=== PATIENT | male | born 1940 | race Caucasian/White ===

== ENCOUNTER 2020-01-14 08:52 | Outpatient (CLI) | payer MEDICARE, SELFPAY ==
[2020-01-14 20:58] LABS: SARS-CoV-2 RNA PCR Negative
== END 2020-01-14 08:53 | disposition home or self-care (01) ==
PROVIDERS: Visit Provider Otolaryngology
DX: Z01.818 Encounter for other preprocedural examination (principal); Z11.59 Encounter for screening for other viral diseases
CPT/HCPCS: 87635; C9803; U0003

== ENCOUNTER 2020-01-14 09:04 | Outpatient (CLI) | payer MEDICARE, SELFPAY ==
--- NOTE | 2020-01-14 09:43 | ECG_ITS ---
Measurements Intervals [place] Rate: 61 P: 43 MN: 169 QRS: -7 QRSD: 80 T: 47 QT: 392 QTc: 398 Interpretive Statements SINUS RHYTHM VOLTAGE CRITERIA FOR LVH BORDERLINE ECG Electronically Signed On 01-14-2020 10:19:19 CDT by Ant Silva D.O.
[2020-01-14 09:49] LABS: Blood Urea Nitrogen 20 mg/dL (9-20); Calcium 9.6 mg/dL (8.4-10.2); Carbon Dioxide 33 mmol/L (22-30); Chloride 102 mmol/L (98-107); Estimated Glomerular Filt Rate 53; Glucose 125 mg/dL (75-110); Potassium 4.8 mmol/L (3.4-5.0); Sodium 139 mmol/L (137-145)
== END 2020-01-14 09:05 | disposition home or self-care (01) ==
PROVIDERS: Visit Provider Anesthesiology
DX: Z01.818 Encounter for other preprocedural examination (principal); I10 Essential (primary) hypertension; Z79.899 Other long term (current) drug therapy
CPT/HCPCS: 36415; 80048; 93005

== ENCOUNTER 2020-01-17 01:33 | Day surgery (SDC) | payer MEDICARE, SELFPAY ==
[2020-01-12 09:47] VITALS: BMI 30.5
[2020-01-17] MEDS: LACTATED RINGERS 1,000 ML 30 ML IV CONT (09:00)
--- NOTE | 2020-01-17 09:03 | WPDANESEPPF ---
Anes - Initial Pre Proc Eval Procedure: Operation Date: 01/17/20 10:00 Proposed Procedures p Extraction of Skin Lesion Right Side of Neck - Tobias Stewart MD Date/Time: 01/17/20 09:03 Surgeon: Tobias Stewart MD Pre Op Diagnosis: NEOPLASM OF SKIN OF FACE Patient Data Age: 79 Gender: M Height: 6 ft Weight: 102.27 kg Allergies Allergy/AdvReac Type Severity Reaction Status Date / Time No Known Allergies Allergy Verified 01/12/20 09:52 Home Medications Medication Instructions Recorded Confirmed Type kogdexcghy-lghgbcsis-owwmvambh 1 tablet PO DAILY 01/12/20 01/12/20 History meloxicam 15 mg PO DAILY 01/12/20 01/12/20 History simvastatin 20 mg PO HS 01/12/20 01/12/20 History Patient hx anesthesia problems: none Family hx anesthesia problems: none [facility] Past Medical History Medical History Arthritis Hyperlipidemia Hypertension Anes - Eval Final PreProcedure Day of Procedure 01/17/20 09:03 Patient weight: obese Heart: regular rate and rhythm Lungs: clear to auscultation Airway: Mallampati scale class II Neurological: alert and oriented Last oral intake: >/= 8 hours ASA classification: III Emergent: no Anesthetic plan: proceed Anesthesia type and monitoring: general LMA and standard monitoring Informed Consent: The patient's anesthetic plan and its attendant risks and benefits were discussed with the patient/family/POA. Questions were solicited and answers provided to the satisfaction of the patient/family/POA.
[2020-01-17 09:23] VITALS: BP 128/67; PULSE 74; RESP 18; TEMP 35.7; O2SAT 99
--- NOTE | 2020-01-17 09:45 | PM.IMHP ---
H&P: HPI History of Present Illness Chief complaint: NEOPLASM OF SKIN OF FACE Narrative: Andrea Crawford is a 79 year old male with a suspicious skin lesion concerning for skin cancer, office biopsy non-diagnostic. Right side, below auricle. Review of Systems Review of Systems: All systems reviewed & are unremarkable except as noted in HPI and below PMFSH Past Medical History Medical History Arthritis Hyperlipidemia Hypertension Meds Home Medications and Allergies Home Medications Medication Instructions Recorded Confirmed Type kkvqbfqpvf-qguxuyzau-uzpfnpzit 1 tablet PO DAILY 01/12/20 01/17/20 History meloxicam 15 mg PO DAILY 01/12/20 01/17/20 History simvastatin 20 mg PO HS 01/12/20 01/17/20 History Allergies Allergy/AdvReac Type Severity Reaction Status Date / Time No Known Allergies Allergy Verified 01/17/20 09:21 Vital Signs Vital Signs - 24 hr 01/17/20 09:23 Temperature 35.7 C L Pulse Rate 74 Respiratory Rate 18 Blood Pressure 128/67 Pulse Oximetry 99 Exam Narrative: Exam Narrative: right neck skin lesion Assessment and Plan Assessment and plan (1) Neoplasm of skin: Code(s): D49.2 - Neoplasm of unspecified behavior of bone, soft tissue, and skin Status: Acute Assessment and Plan: Andrea has right neck skin lesion concerning for squamous cell carcinoma. Plan for wide local excision in OR. Refer to office H&P for full details.
[2020-01-17] MEDS: ceFAZolin 2 GM/D5W 50 ML 2 GM/50 ML BAG IVPB (10:00)
[2020-01-17] MEDS: LIDO 1%/EPINEPHRINE 1:100,000 20 ML VIAL 5 ML INFILTRATE (10:16)
--- NOTE | 2020-01-17 10:32 | SUR.OPER ---
specimen stitch is superior
[2020-01-17] MEDS: MUPIROCIN 2% OINT 22 GM TUBE 1 APPLIC TOPICAL (10:34)
--- NOTE | 2020-01-17 10:38 | P.OP_ITS ---
Procedure Note - Detailed Date of procedure: 01/17/20 Pre-op diagnosis: NEOPLASM OF SKIN OF FACE Post-op diagnosis: same Procedure performed: Wide local excision of suspected malignant neoplasm of skin with local flap reconstruction. Description of procedure: After consent was obtained, patient was brought to the OR and placed under general anesthesia via LMA. A timeout was performed. The neck was prepped and draped in sterile fashion. The skin lesion was marked and a 5mm margin was marked around the lesion for wide local excision. The area as infiltrated with 1% lidocaine with 1:100k epinephrine. The incision was made with 15 blade and electrocautery at 15 was used to dissect the skin lesion free. No visible deep invasion. The defect was approximately 1.5cm large [place] of missing skin. An O to Z plasty was performed, mobilizing a skin flap anteriorly to be brought back to reapproximate the incision. Skin was widely undermined and reapproximated using 3-0 vicryl and 5-0 proline suture in layered, interrupted fashion. With satisfactory closure, care of patient returned to anesthesia who woke him, removed the LMA and transferred him to PACU for recovery. Anesthesia: GLMA Surgeon: Tobias Stewart MD Estimated blood loss (mL): 5 Drains: No Packing: No Pathology: yes (Skin lesion, marking suture at 12 o'clock (superior)) Complications: None Condition: stable Disposition: same day Findings: Right skin lesion suspicious for SCCa, wide local excision with O to Z plasty.
[2020-01-17 10:40] VITALS: BP 115/92; PULSE 102; RESP 15; TEMP 36.4; O2SAT 99
[2020-01-17 10:45] VITALS: BP 133/79; PULSE 96; RESP 16; O2SAT 98
[2020-01-17 11:00] VITALS: BP 131/78; PULSE 81; RESP 17; O2SAT 98
[2020-01-17 11:05] VITALS: BP 140/66; PULSE 78; RESP 18; O2SAT 97
[2020-01-17 11:35] VITALS: BP 137/67; PULSE 68; RESP 16
== END 2020-01-17 12:00 | disposition home or self-care (01) ==
PROVIDERS: PCP Emergency Medicine; Visit Provider Otolaryngology
PROC: (CPT 14040; principal; 2020-01-17 10:00)
DX: C44.41 Basal cell carcinoma of skin of scalp and neck (principal); I10 Essential (primary) hypertension; E78.5 Hyperlipidemia, unspecified; M19.90 Unspecified osteoarthritis, unspecified site; E66.9 Obesity, unspecified; Z68.29 Body mass index [BMI] 29.0-29.9, adult
CPT/HCPCS: 14040; 36415; 80048; 87635; 88305; 93005; A9270; C9803; J0690; J1100; J2405; J2704; J3010; J7120; U0003

== ENCOUNTER 2023-04-24 08:19 | Outpatient (CLI) | payer MEDICARE, SELFPAY ==
--- NOTE | 2023-04-24 08:45 | ECG_ITS ---
Measurements Intervals [place] Rate: 62 P: 51 [place]: 170 QRS: -5 QRSD: 86 T: 56 QT: 398 QTc: 407 Interpretive Statements SINUS RHYTHM WITH OCCASIONAL SUPRAVENTRICULAR PREMATURE COMPLEXES COMPARED TO ECG 01/14/2020 09:46:06 NO SIGNIFICANT CHANGES Electronically Signed On 04-24-2023 12:45:34 CDT by Rosa Baldwin M.D.
[2023-04-24 09:03] LABS: Basophils Absolute Auto 0.1 K/mm3 (0.0-0.1); Basophils Percent Auto 0.8 % (0.2-1.2); Eosinophils Absolute Auto 0.1 K/mm3 (0-0.3); Eosinophils Percent Auto 1.9 % (0-4.4); Hematocrit 44.4 % (42.0-52.0); Hemoglobin 14.3 g/dL (14.0-18.0); Immature Granulocyte Absolute 0.04 K/mm3 (0.00-0.031); Immature Granulocyte Percent A 0.5 % (0-0.5); Lymphocytes Percent Auto 14.8 % (18.3-44.2); Mean Corpuscular HGB Conc 32.2 g/dl (32-36); Mean Corpuscular Hemoglobin 30.2 pg (26-34); Mean Corpuscular Volume 93.9 fl (80-100); Mean Platelet Volume 8.8 fl (7.4-10.4); Monocytes Absolute Auto 0.6 K/mm3 (0.1-0.6); Monocytes Percent Auto 7.9 % (2.6-8.5); Neutrophils Absolute Auto 5.5 K/mm3 (1.3-6.7); Neutrophils Percent Auto 74.1 % (45.5-73.1); Platelet Count Result 324 k/mm3 (150-375); Red Blood Count 4.73 M/mm3 (4.6-6.20); Red Cell Distribution Width 12.8 % (11.5-14.5); White Blood Count 7.4 K/mm3 (4.5-10.0)
[2023-04-24 09:15] LABS: Anion Gap 6 mmol/L (8-16); Blood Urea Nitrogen 14 mg/dL (9-20); Calcium 9.5 mg/dL (8.4-10.2); Carbon Dioxide 31 mmol/L (22-30); Chloride 102 mmol/L (98-107); Estimated Glomerular Filt Rate 58; Glucose 109 mg/dL (65-110); Potassium 4.9 mmol/L (3.4-5.0); Sodium 139 mmol/L (137-145)
== END 2023-04-24 08:20 | disposition home or self-care (01) ==
LOC: ANHSURGERY 08:24
PROVIDERS: PCP Emergency Medicine; Visit Provider Surgery
DX: K40.90 Unilateral inguinal hernia, without obstruction or gangrene, not specified as recurrent (principal); R93.1 Abnormal findings on diagnostic imaging of heart and coronary circulation
CPT/HCPCS: 36415; 80048; 85025; 86850; 86900; 86901; 93005

== ENCOUNTER 2023-05-01 10:31 | Observation (INO) | payer MEDICARE, SELFPAY ==
[2023-04-22 16:40] VITALS: BMI 25.8
--- NOTE | 2023-04-22 16:42 | PC.NURSE ---
Report to the Outpatient Waiting Room, entrance under the green pavilion located off [facility], at time _0800_ on date _[id number]_. Planned Procedure Time: _1000_. Time changes happen often and if your time is changed the preop area will call you the afternoon before. - You and your visitor will be asked to self-screen and do not enter if you have any COVID symptoms. - A mask is optional within the hospital at this time. Patients may have clear liquids (water, carbonated beverages, clear teas, apple juice) until 3 hours prior to surgery with a maximum of 20 ounces. - No food from midnight until time of surgery Take the following medications with a SIP of water the morning of surgery: ___Amlodipine DO NOT STOP ANY OF YOUR OTHER PRESCRIPTION MEDICATIONS PRIOR TO SURGERY ?EXCEPT THE FOLLOWING Medications to discontinue per physician None Date to take last dose Please no make-up, nail bruneian, hairspray, perfume, deodorant, or body powder the day of surgery. No jewelry (including any body piercings) or valuables the day of surgery, leave them at home. Please take a shower or bath the night before, or the morning of, surgery with an antibacterial soap. Wear comfortable, loose fitting clothing. - Jewelry must be removed prior to entering the operating room. Rings and piercings that are not removed may be cut off. - The hospital will not accept responsibility for valuables. - Please leave all valuables, including medications, at home the day of surgery. If you are going home after surgery, a licensed lease purchase driver must drive you home. - NO public transportation without another adult if you receive anesthesia. - We recommend that an adult stay with you for 24 hours following discharge. - We also recommend that you do not drive, make important decision, drink alcoholic beverages, or take any drugs that were not prescribed by your health care provider for at least 24 hours after your discharge time. Follow any additional instructions given to you from your surgeon. If you or anyone in your household have experienced Covid symptoms in the past week, please notify your surgeon or the nurse liaison at the phone number below for possible testing. Telephone instructions given to _Patient and Spouse__and asked if any additional questions and then verbalized understanding. Patient advised to call surgeon office or pre surgery nurse liaison [phone] if any additional questions.
[2023-04-30] VITALS (13 sets, daily range): BP systolic 113–158; BP diastolic 59–91; PULSE 45–81; RESP 11–18; TEMP 35.5–37.2; O2SAT 97–100
--- NOTE | 2023-04-30 08:59 | P.PNAN_ITS ---
Anes - Initial Pre Proc Eval Procedure: Operation Date: 04/30/23 10:00 Proposed Procedures p Robotic Laparoscopic Bilateral Inguinal Hernia Repair with Mesh - Jeremiah Sheth MD Date/Time: 04/30/23 08:59 Surgeon: Jeremiah Sheth MD Pre Op Diagnosis: Bilateral Ing Hernias Patient Data Age: 82 Gender: M Height: 1.83 m Weight: 86.4 kg Allergies Allergy/AdvReac Type Severity Reaction Status Date / Time No Known Allergies Allergy Verified 04/22/23 16:33 Home Medications Medication Instructions Recorded Confirmed Type simvastatin 20 mg tablet 20 mg PO HS 01/12/20 04/22/23 History amlodipine 5 mg tablet 5 mg PO DAILY 03/31/23 04/22/23 History pantoprazole 20 mg tablet,delayed 20 mg PO QAM 04/03/23 04/22/23 History release Patient hx anesthesia problems: none Family hx anesthesia problems: none Results Review: All pre-operative results and documents have been reviewed as part of the pre- operative evaluation. [facility] Past Medical History Medical History Arthritis Hyperlipidemia Hypertension Surgical History Surgical History History of right knee joint replacement January 2023 Family History Family History Father Heart disease Mother COPD (chronic obstructive pulmonary disease) Social History Social History Smoking status: Current some day smoker Tobacco type: cigars Alcohol intake: current Drinks per week: 2 Living arrangements: with family Occupation/Education: retired Spiritual care concerns: No Anes - Eval Final PreProcedure Day of Procedure 04/30/23 08:59 Patient weight: normal Heart: regular rate and rhythm Lungs: clear to auscultation Airway: Mallampati scale class II and special considerations poor dentition Neurological: alert and oriented Last oral intake: >/= 8 hours ASA classification: II Emergent: no Anesthetic plan: proceed Anesthesia type and monitoring: general ETT and standard monitoring Results Review: All pre-operative results and documents have been reviewed as part of the pre- operative evaluation. Informed Consent: The patient's anesthetic plan and its attendant risks and benefits were discussed with the patient/family/POA. Questions were solicited and answers provided to the satisfaction of the patient/family/POA.
[2023-04-30] MEDS: LACTATED RINGERS 1,000 ML 30 ML IV CONT ×3 (09:00→13:48)
--- NOTE | 2023-04-30 09:08 | WPDHPUPDATE1 ---
History and Physical Update Update Date/Time: 04/30/23 09:08 History and Physical has been reviewed, including an updated exam of the patient. There are NO changes in the patient's condition. Risks, benefits, and alternatives have been discussed and questions answered. Patient agrees to proceed with procedure.
[2023-04-30] MEDS: KETOROLAC 15 MG/ML VIAL (*BKC) IV PUSH (09:40)
[2023-04-30] MEDS: ACETAMINOPHEN 500 MG TABLET 1000 MG PO (09:40)
[2023-04-30] MEDS: ceFAZolin 2 GM/D5W 50 ML 2 GM/50 ML BAG IVPB (09:49)
[2023-04-30] MEDS: BUPIVACAINE/EPINEPHRINE 0.5% 50 ML VIAL INFILTRATE (13:10)
--- NOTE | 2023-04-30 13:37 | W.PM.PROC2 ---
Procedure Note - Detailed Date of Procedure 04/30/23 Pre-op Diagnosis Bilateral Ing Hernias Post-op Diagnosis Same Procedure Performed Robotic laparoscopic repair bilateral inguinal hernias Surgeon Jeremiah Sheth MD [employer] LOZANO Anesthesia General and Local (0.5% Marcaine with epinephrine) Indications Patient developed a sizable right inguinal hernia which has been bothersome for him. On exam he was noted to not only have a right inguinal hernia but also a left inguinal hernia. After discussion, he is taken to surgery now for robotic laparoscopic repair of both inguinal hernias. Findings Patient had bilateral indirect hernias, right larger than left Description of Procedure Patient was taken to surgery and induced into general anesthesia. The abdomen is prepped and draped. Trocars were placed across the abdomen a few cm above the umbilicus. The initial trocar was placed after local anesthetic and the varies needle had been introduced. CO2 insufflation was carried out with the varies needle. Then applied Medical 5 mm optical trocar was placed. This showed intraperitoneal location. We then placed the other 2 trocars using local and direct visualization. These were both robotic 8 mm trocars. The camera was then moved to another port and the 5 mm trocar was exchanged for an 8 mm robotic trocar. Patient was placed in Trendelenburg. We brought the robot into the field. The camera was placed and targeted. The 2 instrument ports were placed on the right and left side of the camera. The surgeon broke from the sterile field and went to the robotic console. I started on the patient's right side which was the larger and more symptomatic hernia. A peritoneal flap was created just above the area of the hernia defect. This was started laterally and continued medially to the median umbilical ligament. The flap was carefully dissected staying close to the peritoneum laterally but dissecting a little more deeply on the left to expose the rectus abdominus muscle. Cautery was used for hemostasis. The dissection was very dry. Dissection was carried down below the pectinate line laterally. We dissected down along the rectus muscle and exposed Arturo's ligament and the pubis. Dissection was carried more medially and the left rectus muscle was exposed. The bladder was carefully dissected off the pubis. I dissected about 2 cm posterior to the pubis and Arturo's ligament. We then turned our attention to the indirect hernia sac and the cord vessels and structures. Placing gentle traction on the hernia sac, I divided some of the transversalis sling and slowly but carefully reduce the hernia sac moving the traction farther forward as this was done. Additionally the hernia sac was retracted antral medially and the cord vessels were carefully dissected off the sac and preserved. Eventually we came to the edge of the hernia sac. This was dissected off the cord structures. I then continued the dissection of the peritoneum off the cord structures so that we were well below the internal ring with our peritoneal dissection. I continued the dissection on the lateral aspect making an adequate space to place our mesh. Medially we had adequate space with dissection at least 2 cm below the pubis and Arturo's ligament. At this point, I then turned my attention to the patient's left side. In similar fashion a peritoneal flap was started laterally and continued medially up to the median umbilical ligament. The flap was taken down staying very close to the peritoneum laterally but dissecting a little more deeply medially so that the left rectus muscle was found and exposed. We soon connected the dissection planes with the previous right-sided dissection. Dissection was continued on posteriorly and Arturo's ligament was exposed and continuity with the pubis was exposed. Laterally I dissected the flap below the pectinate line. I then turned my attention to the indir
[2023-04-30] MEDS: LACTATED RINGERS 1,000 ML 100 ML IV CONT ×2 (15:12→21:58)
--- NOTE | 2023-04-30 15:17 | ADMGEN ---
This patient, Andrea Crawford, was admitted to [facility] Surg Room 328-01. Patient/family oriented to hospital policies and general routines including ID bracelet, bed and alarms, visiting hours, pain management, procedures, bathroom and other care routines, personal items, smoking policy, room service/diet, and visiting hours. Information on how to activate the Rapid Response Team has been discussed. Patient/Family are encouraged to report perceived risks to care and to ask questions if they do not understand what they are told or what they should do.
[2023-04-30 16:20] LABS: Glucose Point of Care 119 mg/dl (65-105)
--- NOTE | 2023-04-30 16:22 | ECG_ITS ---
Measurements Intervals [place] Rate: 64 P: 65 [place]: 165 QRS: 0 QRSD: 88 T: 85 QT: 434 QTc: 451 Interpretive Statements SINUS RHYTHM POSSIBLE INFERIOR MYOCARDIAL INFARCTION , PROBABLY OLD [30 ms Q WAVE IN II/aVF] NONSPECIFIC T-WAVE ABNORMALITY ABNORMAL ECG COMPARED TO ECG 04/24/2023 08:54:13 NO SIGNIFICANT CHANGES Electronically Signed On 05-01-2023 8:57:50 CDT by Samuel Alston M.D.
--- NOTE | 2023-04-30 16:47 | PM.IMCN ---
Assessment and Plan Assessment and plan (1) Inguinal hernia without obstruction or gangrene: Qualifiers: Laterality: bilateral Recurrence: non-recurrent Qualified Code(s): K40.20 - Bilateral inguinal hernia, without obstruction or gangrene, not specified as recurrent Code(s): K40.90 - Unilateral inguinal hernia, without obstruction or gangrene, not specified as recurrent Status: Acute (2) Bradycardia following surgery: Code(s): I97.89 - Other postprocedural complications and disorders of the circulatory system, not elsewhere classified Status: Acute Plan Problem List 1. Inguinal hernia without obstruction or gangrene see GenSurg notes for care 2. Bradycardia following surgery Rapid response called around 1610 for diaphoresis and unresponsiveness DD: MD, vagal response, anemia, orthostatic hypoTN, electrolyte disturbances, hypoglycemia, bradycardia CBC, CMP, Mag, EKG ordered no ischemic pattern on EKG, formal read pending bird keeper 1.2 -> 1.4; BUN 58 -> 40; ECC 40. fluid resuscitating. elevated WBC - likely reactive to surgery, will trend hgb 14.3 -> 13.1 - patient post-operative, will trend. no outward signs of bleeding/blood in stool. trop negative LR increased from 100 ml/hr to 200 mL/hour during initial eval. completed first liter, second liter at 100 ml/hr ordered due to uptrending bird keeper. monitor I&Os. Blood sugar 119 Call to surgeon james Sheth MD. Surgeon updated and to bedside to assess patient. hold HTN medication - amlodipine, reassess in AM for re-initiation zofran PRN reassessed post-dinner bedrest complete orthostatic VS - if unable to tolerate/becomes diaphoretic, notify provider. CBC and BMP in AM. tele monitoring Reassessment at 2130: Patient remains A/Ox4, continued complaint of mild abdominal discomfort that is nonfocal. Able to eat 40% of his dinner without nausea/vomiting. No chest pain, shortness of breath, palpitations, or diaphoresis. S1-S2 present without murmur, rub, ectopy. No respiratory distress, lungs remain clear and equal throughout all lung medina. No erythema, drainage, swelling to surgical sites. No other complaints voiced. Assessed patient toleration of up to use urinal with 2 person standby assist. Mild swaying noted post-void, no diaphoresis, no syncopal prodrome. activity level changed to up to commode with assistance - reassess stability in AM for activity modification. Chronic Conditions - HTN: hold meds. Diet: Regular DVT Prophylaxis: SCDs and Lovenox Lines: pIV Code Status: Full Code Critical Care Time: I personally spent 60 minutes of direct patient care including (but not limited to) the physical examination, decision-making, bedside evaluation, review of medical records, review of labs and imaging, discussion with nursing staff and other providers for collaborative, critical care management of this patient. HPI Data of Consult Consult date: 04/30/23 Requesting Physician: Jeremiah Sheth MD Primary Care Provider: Brady Guerin, Consult Narrative Reason for consult: Bradycardia Narrative: Andrea Crawford is a 82 year old male who is postop today for hernia repair, done laparoscopically with PMH of HTN. Rapid response called shortly after 1600. Prior to RR being called, patient was up to the restroom to urinate, no bowel movement. Ambulated to and from restroom with assistance. Patient sat back into the bed when he reported nausea to his and the PCT. PCT left room to get emesis basin when he became diaphoretic and unresponsive. alerted patient career coach who came back to the bedside and called nursing staff. Rapid response was called. At my arrival patient was profusely diaphoretic, A/Ox0, with eye opening. Blood sugar was 119. Heart rate reading 45. Per staff, lowest heart rate seen was 38. Initial blood pressure during rapid response was 113/85, repeat was 107/53. Shortly after my arr
--- NOTE | 2023-04-30 17:06 | PC.NURSE ---
Addendum entered by Pat Hoyos RN 04/30/23 18:02: Rapid was called at 1610 Original Note: After urinating in the restroom and returning to the chair patient became unresponsive. This nurse was called by the [facility] child care associate into the room. After verbal stimuli and failure to respond to sternal rubbing a rapid response was called around 1615. Patient was returned to bed during the response. EKG was done, BS was taken, labs were ordered. After several minutes patient returned to his baseline condition of AOx1 responding to verbal stimuli. Arabella Valdes, and Dr. Sheth all responded to the room orders obtained. Patient currently on bedrest eating dinner will to continue to monitor. No signs of distress at this time.
--- NOTE | 2023-04-30 18:26 | PC.NURSE ---
muck operator notified of stat labs at 1745. She states that they are coming to draw him. At 1820 still not drawn. labs reordered, waiting for muck operator.
[2023-04-30 18:54] LABS: Hematocrit 40.5 % (42.0-52.0); Hemoglobin 13.1 g/dL (14.0-18.0); Mean Corpuscular HGB Conc 32.3 g/dl (32-36); Mean Corpuscular Hemoglobin 30.8 pg (26-34); Mean Corpuscular Volume 95.3 fl (80-100); Mean Platelet Volume 9.9 fl (7.4-10.4); Platelet Count Result 315 k/mm3 (150-375); Red Blood Count 4.25 M/mm3 (4.6-6.20); Red Cell Distribution Width 12.8 % (11.5-14.5); White Blood Count 20.8 K/mm3 (4.5-10.0)
[2023-04-30 19:17] LABS: Alanine Aminotransferase 14 U/L (6-50); Albumin Level 3.7 g/dL (3.5-5.1); Alkaline Phosphatase 68 U/L (38-126); Anion Gap 9 mmol/L (8-16); Aspartate Amino Transferase 23 U/L (17-59); Bilirubin,Total 0.9 mg/dL (0.2-1.3); Blood Urea Nitrogen 16 mg/dL (9-20); Calcium 8.9 mg/dL (8.4-10.2); Carbon Dioxide 26 mmol/L (22-30); Chloride 101 mmol/L (98-107); Estimated CRCL calculation 40 ml/min; Estimated Glomerular Filt Rate 49; Glucose 132 mg/dL (65-110); Magnesium 2.2 mg/dL (1.6-2.3); Sodium 136 mmol/L (137-145)
[2023-04-30 19:27] LABS: Troponin I < 0.012 ng/mL (0.000-0.034)
[2023-04-30] MEDS: HYDROcodone/acetaminophen (*CRX) 5-325 MG TABLET 1 TAB PO (20:40)
[2023-04-30] MEDS: SIMVASTATIN 20 MG TABLET PO (20:40)
[2023-05-01] VITALS (15 sets, daily range): BP systolic 116–139; BP diastolic 59–74; PULSE 61–92; RESP 14–18; TEMP 36.2–37; O2SAT 97–98; BMI 25.7
[2023-05-01] MEDS: MORPHINE SULFATE (*CRX) 2 MG/ML INJ IV PUSH ×2 (00:04→04:15)
[2023-05-01 07:02] LABS: Hematocrit 33.2 % (42.0-52.0); Hemoglobin 10.7 g/dL (14.0-18.0); Mean Corpuscular HGB Conc 32.2 g/dl (32-36); Mean Corpuscular Hemoglobin 30.6 pg (26-34); Mean Corpuscular Volume 94.9 fl (80-100); Mean Platelet Volume 9.5 fl (7.4-10.4); Platelet Count Result 283 k/mm3 (150-375); White Blood Count 12.4 K/mm3 (4.5-10.0)
[2023-05-01 07:59] LABS: Anion Gap 4 mmol/L (8-16); Blood Urea Nitrogen 18 mg/dL (9-20); Calcium 8.9 mg/dL (8.4-10.2); Carbon Dioxide 30 mmol/L (22-30); Chloride 100 mmol/L (98-107); Estimated CRCL calculation 43 ml/min; Estimated Glomerular Filt Rate 53; Glucose 122 mg/dL (65-110); Potassium 3.9 mmol/L (3.4-5.0); Sodium 134 mmol/L (137-145)
[2023-05-01] MEDS: ENOXAPARIN 40 MG/0.4 ML SYRINGE SUB-Q (08:31)
[2023-05-01] MEDS: TAMSULOSIN HCL 0.4 MG CAPSULE PO (08:32)
[2023-05-01] MEDS: PANTOPRAZOLE SOD SESQUIHYDRATE 20 MG TAB PO (08:32)
--- NOTE | 2023-05-01 10:19 | WPDANESPN ---
Anes - Prog Note Post-Op Date/Time: 05/01/23 10:19 Cardiovascular status: normal Respiratory status: normal Airway patency: baseline Mental status: baseline Post-Op hydration status: normal Vital Signs: Last Vital Signs Temp 97.8 F 05/01/23 08:24 Pulse 65 05/01/23 08:24 Resp 18 05/01/23 08:24 BP 130/67 05/01/23 08:24 Pulse Ox 98 05/01/23 08:24 O2 Del Method Room Air 05/01/23 08:09 O2 Flow Rate 6 04/30/23 13:20 Pain Score (VAS): 0/10 I/O: Intake & Output 04/30/23 05/01/23 05/01/23 23:59 07:59 15:59 Intake Total 222 240 Output Total 475 Balance 222 -475 240 Laboratory Tests 05/01/23 06:49 05/01/23 06:49 04/30/23 04/30/23 04/30/23 16:10 17:43 17:46 WBC 20.8 H RBC 4.25 L Hgb 13.1 L Hct 40.5 L MCV 95.3 MCH 30.8 MCHC 32.3 RDW 12.8 Plt Count 315 MPV 9.9 Sodium 136 L Potassium 4.0 Chloride 101 Carbon Dioxide 26 Anion Gap 9 BUN 16 Creatinine 1.40 H Estim Creat Clear Calc 40 Estimated GFR 49 L Glucose 132 H POC Capillary Glucose 119 H Calcium 8.9 Magnesium 2.2 Total Bilirubin 0.9 AST 23 ALT 14 Alkaline Phosphatase 68 Troponin I < 0.012 Total Protein 7.0 Albumin 3.7 05/01/23 06:49 WBC 12.4 H RBC 3.50 L Hgb 10.7 L Hct 33.2 L MCV 94.9 MCH 30.6 MCHC 32.2 RDW 13.0 Plt Count 283 MPV 9.5 Sodium 134 L Potassium 3.9 Chloride 100 Carbon Dioxide 30 Anion Gap 4 L BUN 18 Creatinine 1.30 Estim Creat Clear Calc 43 Estimated GFR 53 L Glucose 122 H POC Capillary Glucose Calcium 8.9 Magnesium Total Bilirubin AST ALT Alkaline Phosphatase Troponin I Total Protein Albumin Post-procedural complaints: none Patient Feedback: Patient satisfied with anesthetic care.
--- NOTE | 2023-05-01 11:58 | P.PNIM_ITS ---
Progress Note: A&P Assessment and Plan (1) Inguinal hernia without obstruction or gangrene: Qualifiers: Laterality: bilateral Recurrence: non-recurrent Qualified Code(s): K40.20 - Bilateral inguinal hernia, without obstruction or gangrene, not specified as recurrent Code(s): K40.90 - Unilateral inguinal hernia, without obstruction or gangrene, not specified as recurrent Status: Acute (2) Bradycardia following surgery: Code(s): I97.89 - Other postprocedural complications and disorders of the circulatory system, not elsewhere classified Status: Acute Plan Problem List 1. Inguinal hernia without obstruction or gangrene * see GenSurg notes for care 2. Bradycardia following surgery * Rapid response called around 1610 for diaphoresis and unresponsiveness EKG showed sinus bradycardia Possible vagal response, anemia, orthostatic hypoTN, electrolyte disturbances, hypoglycemia, bradycardia * CBC, CMP, Mag, EKG ordered no ischemic pattern on EKG, formal read pending source inspector 1.2 -> 1.4; BUN 58 -> 40; ECC 40. fluid resuscitating. elevated WBC - likely reactive to surgery, will trend hgb 14.3 -> 13.1 - patient post-operative, will trend. no outward signs of bleeding/blood in stool. trop negative * LR increased from 100 ml/hr to 200 mL/hour during initial eval. completed first liter, second liter at 100 ml/hr ordered due to uptrending source inspector. monitor I&Os. * Blood sugar 119 * Call to surgeon james Sheth MD. Surgeon updated and to bedside to assess patient. * hold HTN medication - amlodipine, * reassessed post-dinner * bedrest * complete orthostatic VS - if unable to tolerate/becomes diaphoretic, notify provider. * CBC and BMP in AM. * tele monitoring 05/01 patient is afebrile, hemodynamically stable, patient denies chest pain, palpitation, heart rate 65-92, orthostatic test negative Possible vasovagal syncope Continue to hold hypertension medications including amlodipine Blood pressure stable Chronic Conditions - HTN: hold meds. Diet: Regular DVT Prophylaxis: SCDs and Lovenox Lines: pIV Code Status: Full Code Critical Care Time: I personally spent 60 minutes of direct patient care including (but not limited to) the physical examination, decision-making, bedside evaluation, review of medical records, review of labs and imaging, discussion with nursing staff and other providers for collaborative, critical care management of this patient. Subjective Date/time seen: 05/01/23 11:58 Interval history: I saw exam patient today, patient denies chest pain, palpitation, heart rate falsl in the range of 65-92. Patient is hemodynamically stable. Leukocytosis is trending down Exam Narrative: GENERAL: Pleasant, in no acute distress. Well-nourished. - EYES: EOMI. Anicteric. - HENT: Moist mucous membranes. - LUNGS: Clear to auscultation bilateral ly, no wheezing, rhonchi, or rales. - CARDIOVASCULAR: Regular rate and rhyth m. No murmur. No JVD. - ABDOMEN: Soft, non-tender and non-dist ended. No palpable masses. Surgical wound dry and clean - EXTREMITIES: No edema. Peripheral puls es 2+. Non-tender. - NEUROLOGIC: No focal neurological defi cits. CN II-XII grossly intact.
--- NOTE | 2023-05-01 11:58 | PM.IMPN ---
Progress Note: A&P Assessment and Plan (1) Inguinal hernia without obstruction or gangrene: Qualifiers: Laterality: bilateral Recurrence: non-recurrent Qualified Code(s): K40.20 - Bilateral inguinal hernia, without obstruction or gangrene, not specified as recurrent Code(s): K40.90 - Unilateral inguinal hernia, without obstruction or gangrene, not specified as recurrent Status: Acute (2) Bradycardia following surgery: Code(s): I97.89 - Other postprocedural complications and disorders of the circulatory system, not elsewhere classified Status: Acute Plan Problem List 1. Inguinal hernia without obstruction or gangrene see GenSurg notes for care 2. Bradycardia following surgery Rapid response called around 1610 for diaphoresis and unresponsiveness EKG showed sinus bradycardia Possible vagal response, anemia, orthostatic hypoTN, electrolyte disturbances, hypoglycemia, bradycardia CBC, CMP, Mag, EKG ordered no ischemic pattern on EKG, formal read pending doctor assistant 1.2 -> 1.4; BUN 58 -> 40; ECC 40. fluid resuscitating. elevated WBC - likely reactive to surgery, will trend hgb 14.3 -> 13.1 - patient post-operative, will trend. no outward signs of bleeding/blood in stool. trop negative LR increased from 100 ml/hr to 200 mL/hour during initial eval. completed first liter, second liter at 100 ml/hr ordered due to uptrending doctor assistant. monitor I&Os. Blood sugar 119 Call to surgeon james Sheth MD. Surgeon updated and to bedside to assess patient. hold HTN medication - amlodipine, reassessed post-dinner bedrest complete orthostatic VS - if unable to tolerate/becomes diaphoretic, notify provider. CBC and BMP in AM. tele monitoring 05/01 patient is afebrile, hemodynamically stable, patient denies chest pain, palpitation, heart rate 65-92, orthostatic test negative Possible vasovagal syncope Continue to hold hypertension medications including amlodipine Blood pressure stable Chronic Conditions - HTN: hold meds. Diet: Regular DVT Prophylaxis: SCDs and Lovenox Lines: pIV Code Status: Full Code Critical Care Time: I personally spent 60 minutes of direct patient care including (but not limited to) the physical examination, decision-making, bedside evaluation, review of medical records, review of labs and imaging, discussion with nursing staff and other providers for collaborative, critical care management of this patient. Subjective Date/time seen: 05/01/23 11:58 Interval history: I saw exam patient today, patient denies chest pain, palpitation, heart rate falsl in the range of 65-92. Patient is hemodynamically stable. Leukocytosis is trending down Exam Narrative: GENERAL: Pleasant, in no acute distress. Well-nourished. - EYES: EOMI. Anicteric. - HENT: Moist mucous membranes. - LUNGS: Clear to auscultation bilaterally, no wheezing, rhonchi, or rales. - CARDIOVASCULAR: Regular rate and rhythm. No murmur. No JVD. - ABDOMEN: Soft, non-tender and non-distended. No palpable masses. Surgical wound dry and clean - EXTREMITIES: No edema. Peripheral pulses 2+. Non-tender. - NEUROLOGIC: No focal neurological deficits. CN II-XII grossly intact. - PSYCHIATRIC: Awake, Alert and oriented x 3. Appropriate mood and affect. - SKIN: No rashes or lesions. Warm. - LYMPH: No cervical lymphadenopathy. Objective Data Vital Signs Vital Signs: Vital Signs - 24 hr 04/30/23 13:08 04/30/23 13:20 04/30/23 13:30 Temperature 97.2 F L Pulse Rate 60 79 81 Respiratory Rate 11 L 14 15 Blood Pressure 118/59 L 140/82 144/78 H Pulse Oximetry 100 99 99 Oxygen Delivery Simple Face Mask Simple Face Mask Room Air Oxygen Flow Rate 6 6 04/30/23 13:45 04/30/23 14:00 04/30/23 14:15 Temperature Pulse Rate 65 68 58 L Respiratory Rate 18 15 13 Blood Pressure 158/79 H 150/68 H 139/65 Pulse Oximetry 98 97 97 Oxygen Delivery Room Air Room Air Room Air Oxygen Flow Rate 04/30/23 14:3
--- NOTE | 2023-05-01 16:27 | PM.PNGS ---
Progress Note: A&P Assessment and Plan (1) Inguinal hernia without obstruction or gangrene: Qualifiers: Laterality: bilateral Recurrence: non-recurrent Qualified Code(s): K40.20 - Bilateral inguinal hernia, without obstruction or gangrene, not specified as recurrent Code(s): K40.90 - Unilateral inguinal hernia, without obstruction or gangrene, not specified as recurrent Status: Acute Assessment and Plan: Doing well postop day 1. Had a syncopal episode with bradycardia yesterday afternoon. No further issues. Hospitalist was consulted and appreciate their help. Will try ambulating the patient and get him up and moving this afternoon. Flomax started today due to bladder distention. Will get a post-void residual to assess for urinary retention. Possibly home tomorrow if he is able to tolerate activity and remains stable (2) Bradycardia following surgery: Code(s): I97.89 - Other postprocedural complications and disorders of the circulatory system, not elsewhere classified Status: Acute Assessment and Plan: Sidney that this was likely related to a vasovagal syncopal episode. No issues since the episode yesterday afternoon. HR has been stable. Amlodipine is still on hold. Orthostatics negative. Continue cardiac telemetry. Will get patient ambulating this afternoon to see how he tolerates activity. Plan I have discussed the patient's case and plan of care with Dr. Sheth. Subjective Subjective Date/Time Seen: 05/01/23 16:27 Post Op day: 1 (Robotic laparoscopic repair bilateral inguinal hernias) Patient reports: no new complaints, feels better and afebrile Interval history: Yesterday afternoon after surgery, he was on the medical unit and had a rapid response called. He had walked to the bathroom and ambulated back to the couch. He became diaphoretic, bradycardic, and had a syncopal episode. Rapid was called and he quickly returned consciousness. See rapid report. Vital signs and glucose were stable. He has been kept on bedrest since then. He has had some confusion since surgery, but is talking to me appropriately this afternoon. He is oriented and able to hold normal conversation. He has been using the urinal at the bedside and feels like he is voiding well. Earlier this morning, Dr. Sheth started Flomax as he was felt to have some bladder distention. Staff is going to try getting a post void residual this afternoon. He has not ambulated since his rapid response yesterday. He reports feeling at baseline since yesterday with no further syncopal episodes. He denies any chest pain, SOB, dizziness, or any other complaints. He has some expected incisional soreness, but no other issues. Exam Const: General: comfortable, no acute distress and awake Orientation/consciousness: patient oriented x3 Resp: Effort & Inspection: normal respiratory effort Auscultation: clear to auscultation bilaterally Cardio: Rate: regular rate Rhythm: regular rhythm GI: Inspection: non-distended, incision (incisions dry and intact, no bleeding or drainage) and other (bilateral inguinal hernia repairs intact) GI Palp: Yes Soft to palpation, Yes Tenderness to palpation present (GI) (incisional) and No Guarding due to palpation present (GI) Auscultation: normal bowel sounds Neuro: General: moves all extremities and no focal motor deficits Extrem: General: no calf tenderness and no edema Psych: Mental Status: mental status grossly normal Insight: Good insight present (Psych) Objective Data Vital Signs Vital Signs: Vital Signs - 24 hr 04/30/23 16:38 04/30/23 19:40 04/30/23 20:00 Temperature 97.8 F Pulse Rate 45 L 65 68 Respiratory Rate 16 Blood Pressure 113/91 H 137/73 Pulse Oximetry 99 99 Oxygen Delivery 05/01/23 00:38 05/01/23 00:00 05/01/23 04:00 Temperature 97.2 F L Pulse Rate 72 84 77 Respiratory Rate 16 Blood Pressure 122/74 Pulse Oximetry 97 Oxygen Delivery 05/01/23 04
[2023-05-01] MEDS: SIMVASTATIN 20 MG TABLET PO (20:49)
[2023-05-02] VITALS: PULSE 67
[2023-05-02] MEDS: HYDROcodone/acetaminophen (*CRX) 5-325 MG TABLET 1 TAB PO ×2 (01:07→08:10)
[2023-05-02 04:00] VITALS: PULSE 91
[2023-05-02 06:36] VITALS: BP 138/63; PULSE 60; RESP 16; TEMP 36.9; O2SAT 98
[2023-05-02 08:00] VITALS: PULSE 90
[2023-05-02] MEDS: PANTOPRAZOLE SOD SESQUIHYDRATE 20 MG TAB PO (08:08)
[2023-05-02] MEDS: ENOXAPARIN 40 MG/0.4 ML SYRINGE SUB-Q (08:08)
[2023-05-02] MEDS: TAMSULOSIN HCL 0.4 MG CAPSULE PO (08:08)
--- NOTE | 2023-05-02 08:51 | P.PNIM_ITS ---
Progress Note: A&P Assessment and Plan (1) Inguinal hernia without obstruction or gangrene: Qualifiers: Laterality: bilateral Recurrence: non-recurrent Qualified Code(s): K40.20 - Bilateral inguinal hernia, without obstruction or gangrene, not specified as recurrent Code(s): K40.90 - Unilateral inguinal hernia, without obstruction or gangrene, not specified as recurrent Status: Chronic (2) Bradycardia following surgery: Code(s): I97.89 - Other postprocedural complications and disorders of the circulatory system, not elsewhere classified Status: Acute Plan Problem List 1. Inguinal hernia without obstruction or gangrene * see GenSurg notes for care 2. Bradycardia following surgery * Rapid response called around 1610 for diaphoresis and unresponsiveness EKG showed sinus bradycardia Possible vagal response, anemia, orthostatic hypoTN, electrolyte disturbances, hypoglycemia, bradycardia * CBC, CMP, Mag, EKG ordered no ischemic pattern on EKG, formal read pending geographic information system surveyor 1.2 -> 1.4; BUN 58 -> 40; ECC 40. fluid resuscitating. elevated WBC - likely reactive to surgery, will trend hgb 14.3 -> 13.1 - patient post-operative, will trend. no outward signs of bleeding/blood in stool. trop negative * LR increased from 100 ml/hr to 200 mL/hour during initial eval. completed first liter, second liter at 100 ml/hr ordered due to uptrending geographic information system surveyor. monitor I&Os. * Blood sugar 119 * Call to surgeon james Sheth MD. Surgeon updated and to bedside to assess patient. * hold HTN medication - amlodipine, * reassessed post-dinner * bedrest * complete orthostatic VS - if unable to tolerate/becomes diaphoretic, notify provider. * CBC and BMP in AM. * tele monitoring 05/01 patient is afebrile, hemodynamically stable, patient denies chest pain, palpitation, heart rate 65-92, orthostatic test negative Possible vasovagal syncope Continue to hold hypertension medications including amlodipine Blood pressure stable 05/02: patient has no new issues o/n, denies chest pain, palpitation, heart rate 60-91 over the night. Patient is hemodynamically stable. BP stable. Patient denies dizziness, chest pain, palpitation, abdomen pain, nausea vomiting diarrhea dysuria. Patient can be discharged from home today, I recommend patient stop amlodipine p.o., patient will see primary care doctor on Friday next week, resume medication per primary care doctor evaluation Chronic Conditions - HTN: hold meds. Blood pressure stable Diet: Regular DVT Prophylaxis: SCDs and Lovenox Lines: pIV Code Status: Full Code Subjective Date/time seen: 05/02/23 08:51 Interval history: I saw exam patient today, patient denies chest pain, palpitation, heart rate 60- 91 over the night. Patient is hemodynamically stable. Exam Narrative: GENERAL: Pleasant, in no acute distress. Well-nourished. - EYES: EOMI. Anicteric. - HENT: Moist mucous membranes. - LUNGS: Clear to auscultation bilateral ly, no wheezing, rhonchi, or rales. - CARDIOVASCULAR: Regular rate and rhyth m. No murmur. No JVD. - ABDOMEN: Soft, non-tender and non-dist ended. No palpable masses. Surgical wound dry and clean - EXTREMITIES: No edema. Peripheral puls es 2+. Non-tender. - NEUROLOGIC: No
--- NOTE | 2023-05-02 08:51 | PM.IMPN ---
Progress Note: A&P Assessment and Plan (1) Inguinal hernia without obstruction or gangrene: Qualifiers: Laterality: bilateral Recurrence: non-recurrent Qualified Code(s): K40.20 - Bilateral inguinal hernia, without obstruction or gangrene, not specified as recurrent Code(s): K40.90 - Unilateral inguinal hernia, without obstruction or gangrene, not specified as recurrent Status: Chronic (2) Bradycardia following surgery: Code(s): I97.89 - Other postprocedural complications and disorders of the circulatory system, not elsewhere classified Status: Acute Plan Problem List 1. Inguinal hernia without obstruction or gangrene see GenSurg notes for care 2. Bradycardia following surgery Rapid response called around 1610 for diaphoresis and unresponsiveness EKG showed sinus bradycardia Possible vagal response, anemia, orthostatic hypoTN, electrolyte disturbances, hypoglycemia, bradycardia CBC, CMP, Mag, EKG ordered no ischemic pattern on EKG, formal read pending dairy cattle farm manager 1.2 -> 1.4; BUN 58 -> 40; ECC 40. fluid resuscitating. elevated WBC - likely reactive to surgery, will trend hgb 14.3 -> 13.1 - patient post-operative, will trend. no outward signs of bleeding/blood in stool. trop negative LR increased from 100 ml/hr to 200 mL/hour during initial eval. completed first liter, second liter at 100 ml/hr ordered due to uptrending dairy cattle farm manager. monitor I&Os. Blood sugar 119 Call to surgeon james Sheth MD. Surgeon updated and to bedside to assess patient. hold HTN medication - amlodipine, reassessed post-dinner bedrest complete orthostatic VS - if unable to tolerate/becomes diaphoretic, notify provider. CBC and BMP in AM. tele monitoring 05/01 patient is afebrile, hemodynamically stable, patient denies chest pain, palpitation, heart rate 65-92, orthostatic test negative Possible vasovagal syncope Continue to hold hypertension medications including amlodipine Blood pressure stable 05/02: patient has no new issues o/n, denies chest pain, palpitation, heart rate 60-91 over the night. Patient is hemodynamically stable. BP stable. Patient denies dizziness, chest pain, palpitation, abdomen pain, nausea vomiting diarrhea dysuria. Patient can be discharged from home today, I recommend patient stop amlodipine p.o., patient will see primary care doctor on Friday next week, resume medication per primary care doctor evaluation Chronic Conditions - HTN: hold meds. Blood pressure stable Diet: Regular DVT Prophylaxis: SCDs and Lovenox Lines: pIV Code Status: Full Code Subjective Date/time seen: 05/02/23 08:51 Interval history: I saw exam patient today, patient denies chest pain, palpitation, heart rate 60-91 over the night. Patient is hemodynamically stable. Exam Narrative: GENERAL: Pleasant, in no acute distress. Well-nourished. - EYES: EOMI. Anicteric. - HENT: Moist mucous membranes. - LUNGS: Clear to auscultation bilaterally, no wheezing, rhonchi, or rales. - CARDIOVASCULAR: Regular rate and rhythm. No murmur. No JVD. - ABDOMEN: Soft, non-tender and non-distended. No palpable masses. Surgical wound dry and clean - EXTREMITIES: No edema. Peripheral pulses 2+. Non-tender. - NEUROLOGIC: No focal neurological deficits. CN II-XII grossly intact. - PSYCHIATRIC: Awake, Alert and oriented x 3. Appropriate mood and affect. - SKIN: No rashes or lesions. Warm. - LYMPH: No cervical lymphadenopathy. Objective Data Vital Signs Vital Signs: Vital Signs - 24 hr 05/01/23 12:01 05/01/23 16:22 05/01/23 12:00 Temperature 98 F 98.6 F Pulse Rate 70 73 87 Respiratory Rate 14 16 Blood Pressure 122/62 122/59 L Pulse Oximetry 98 97 Oxygen Delivery 05/01/23 16:00 05/01/23 21:32 05/01/23 20:00 Temperature 97.7 F Pulse Rate 72 80 73 Respiratory Rate 18 Blood Pressure 139/65 Pulse Oximetry 97 Oxygen Delivery 05/01/23 20:00 05/02/23 00:00 05/02/23 04:00 Temp
[2023-05-02 09:19] LABS: Basophils Absolute Auto 0.1 K/mm3 (0.0-0.1); Basophils Percent Auto 0.5 % (0.2-1.2); Eosinophils Absolute Auto 0.2 K/mm3 (0-0.3); Eosinophils Percent Auto 2.5 % (0-4.4); Hematocrit 30.1 % (42.0-52.0); Hemoglobin 9.7 g/dL (14.0-18.0); Immature Granulocyte Absolute 0.03 K/mm3 (0.00-0.031); Immature Granulocyte Percent A 0.3 % (0-0.5); Lymphocytes Absolute Auto 1.03 K/mm3 (0.9-3.2); Lymphocytes Percent Auto 11.1 % (18.3-44.2); Mean Corpuscular HGB Conc 32.2 g/dl (32-36); Mean Corpuscular Hemoglobin 30.9 pg (26-34); Mean Corpuscular Volume 95.9 fl (80-100); Mean Platelet Volume 9.8 fl (7.4-10.4); Monocytes Percent Auto 10.2 % (2.6-8.5); Neutrophils Percent Auto 75.4 % (45.5-73.1); Platelet Count Result 252 k/mm3 (150-375); Red Blood Count 3.14 M/mm3 (4.6-6.20); Red Cell Distribution Width 13.1 % (11.5-14.5); White Blood Count 9.3 K/mm3 (4.5-10.0)
[2023-05-02 09:29] LABS: Anion Gap 4 mmol/L (8-16); Blood Urea Nitrogen 14 mg/dL (9-20); Calcium 8.3 mg/dL (8.4-10.2); Carbon Dioxide 29 mmol/L (22-30); Chloride 102 mmol/L (98-107); Estimated CRCL calculation 46 ml/min; Estimated Glomerular Filt Rate 58; Glucose 151 mg/dL (65-110); Potassium 3.5 mmol/L (3.4-5.0); Sodium 135 mmol/L (137-145)
--- NOTE | 2023-05-02 09:52 | PM.DS ---
DS: Admitting Diagnosis Discharge Date 05/02/2023 Admitting Diagnosis Bilateral inguinal hernias Hypertension DS: Discharge Diagnosis Discharge Diagnosis (1) Inguinal hernia without obstruction or gangrene: Qualifiers: Laterality: bilateral Recurrence: non-recurrent Qualified Code(s): K40.20 - Bilateral inguinal hernia, without obstruction or gangrene, not specified as recurrent Code(s): K40.90 - Unilateral inguinal hernia, without obstruction or gangrene, not specified as recurrent Status: Chronic Assessment and Plan: Patient noted to have a symptomatic, larger right inguinal hernia but also a left inguinal hernia. He underwent robotic laparoscopic repair of both hernias with mesh on 04/30/2023. (2) Bradycardia following surgery: Code(s): I97.89 - Other postprocedural complications and disorders of the circulatory system, not elsewhere classified Status: Acute Assessment and Plan: Night after surgery, patient lost consciousness briefly and was noted to have bradycardia in the upper 30s. He was seen in consultation by the hospitalist. Thorough workup was performed. Patient has had this happen following other surgeries. The bradycardia resolved. He was able to ambulate without difficulty. He is able to be discharged at this time in stable, improved condition. (3) Hypertension: Qualifiers: Hypertension type: primary hypertension Qualified Code(s): I10 - Essential (primary) hypertension Code(s): I10 - Essential (primary) hypertension Status: Acute Assessment and Plan: Patient's amlodipine was held following his bradycardic episode. Hospitalist and Dr. Guerin will determine whether he will continue on this medication. DS: Summary Hospital Course Hospital Course: Patient was taken to surgery on the day of admission. Bilateral inguinal hernias were repaired with mesh by robotic approach. The surgeries went quite well. His recovery room experience was quite normal. Plans were to observe him overnight. While in his room, sitting down on the couch after going to the bathroom, he loss consciousness for a short period of time. He was noted to have bradycardia down to the 30s. Once he awakened, he was able to be placed back in bed. He was seen in consultation by hospitalist urgently. EKG, CBC and BMP were performed. No evidence of bleeding, acute cardiac event, or significant electrolyte abnormality was noted. Is bradycardia resolved but he remained with heart rates in the 60s which is a little low for him. He was placed on telemetry and observed. He was only out of bed to stand and urinate with assistance. The next day, he felt much better. He was still taking IV narcotics at 4:00 a.m. on postop day 2. There was sensation of him not adequately enter emptying his bladder. He was started on tamsulosin daily. He was still somewhat unstable on his feet. He was kept a 2nd night. Is urination greatly improved. Postvoid residual was checked and it was less than 100 cc. He was ambulating normally. His abdominal exam and both groin areas showed no sign of significant bleeding. His hemoglobin dropped from 13.1 in the evening, the day of surgery, to 10.7 the following morning. It was slightly lower again at 9.7 on postop day 2. His amlodipine had been held after his bradycardic experience. Hospitalist is yet to determine where liver he will resume this on discharge. His blood pressures have been in the upper 130s last night and again this morning systolic. His potassium decreased during his hospitalization and was 3.5 at the time of discharge. His CBC and BMP will be recheck to again on Friday05/05/2023. He was discharged on 5 days of potassium chloride 20 mEq daily. He was also discharged on ferrous sulfate 325 mg b.i.d.. Status at Discharge Functional status at discharge: independent ambulation Overall status at discharge: patient is progressing back to b
== END 2023-05-02 11:50 | disposition home or self-care (01) ==
LOC: ANHSURGERY 10:31 → ANH3MEDSUR 10:31
PROVIDERS: Hospitalist; Student in an Organized Health Care Education/Training Program; Admitting Provider Surgery; PCP Emergency Medicine; Visit Provider Surgery
PROC: 8E0Y4CZ Robotic Assisted Procedure of Lower Extremity, Percutaneous Endoscopic Approach (ICD-10-PCS; CPT 49650; principal; 2023-04-30 10:00)
DX: K40.20 Bilateral inguinal hernia, without obstruction or gangrene, not specified as recurrent (principal); I97.89 Other postprocedural complications and disorders of the circulatory system, not elsewhere classified; R00.1 Bradycardia, unspecified; E78.5 Hyperlipidemia, unspecified; I10 Essential (primary) hypertension; J44.9 Chronic obstructive pulmonary disease, unspecified; R94.31 Abnormal electrocardiogram [ECG] [EKG]; F17.290 Nicotine dependence, other tobacco product, uncomplicated; Z79.899 Other long term (current) drug therapy
CPT/HCPCS: 49650; S2900; 36415; 80048; 80053; 82948; 83735; 84484; 85025; 85027; 93005; A9270; C1781; G0378; J0690; J1100; J1650; J1885; J2250; J2270; J2405; J2704; J3010; J7030; J7120

== ENCOUNTER 2023-05-05 08:58 | Outpatient (CLI) | payer MEDICARE, SELFPAY ==
[2023-05-05 09:49] LABS: Hematocrit 32.2 % (42.0-52.0); Hemoglobin 10.2 g/dL (14.0-18.0); Mean Corpuscular HGB Conc 31.7 g/dl (32-36); Mean Corpuscular Hemoglobin 30.5 pg (26-34); Mean Corpuscular Volume 96.4 fl (80-100); Mean Platelet Volume 9.6 fl (7.4-10.4); Platelet Count Result 362 k/mm3 (150-375); Red Blood Count 3.34 M/mm3 (4.6-6.20); Red Cell Distribution Width 12.8 % (11.5-14.5); White Blood Count 10.2 K/mm3 (4.5-10.0)
[2023-05-05 10:02] LABS: Anion Gap 7 mmol/L (8-16); Blood Urea Nitrogen 12 mg/dL (9-20); Calcium 9.3 mg/dL (8.4-10.2); Carbon Dioxide 29 mmol/L (22-30); Chloride 102 mmol/L (98-107); Estimated Glomerular Filt Rate 58; Glucose 119 mg/dL (65-110); Potassium 4.9 mmol/L (3.4-5.0); Sodium 138 mmol/L (137-145)
== END 2023-05-05 08:59 | disposition home or self-care (01) ==
LOC: ANHLAB 08:59
PROVIDERS: PCP Emergency Medicine; Visit Provider Surgery
DX: D64.9 Anemia, unspecified (principal); E87.6 Hypokalemia
CPT/HCPCS: 36415; 80048; 85027

== ENCOUNTER 2023-05-15 09:23 | Outpatient (CLI) | payer MEDICARE, SELFPAY ==
[2023-05-15 10:25] LABS: Basophils Absolute Auto 0.1 K/mm3 (0.0-0.1); Basophils Percent Auto 0.7 % (0.2-1.2); Eosinophils Absolute Auto 0.1 K/mm3 (0-0.3); Eosinophils Percent Auto 1.4 % (0-4.4); Hematocrit 35.3 % (42.0-52.0); Hemoglobin 11.1 g/dL (14.0-18.0); Immature Granulocyte Absolute 0.06 K/mm3 (0.00-0.031); Immature Granulocyte Percent A 0.6 % (0-0.5); Lymphocytes Absolute Auto 1.09 K/mm3 (0.9-3.2); Lymphocytes Percent Auto 10.8 % (18.3-44.2); Mean Corpuscular HGB Conc 31.4 g/dl (32-36); Mean Corpuscular Hemoglobin 29.9 pg (26-34); Mean Corpuscular Volume 95.1 fl (80-100); Mean Platelet Volume 9.1 fl (7.4-10.4); Monocytes Absolute Auto 0.8 K/mm3 (0.1-0.6); Monocytes Percent Auto 7.8 % (2.6-8.5); Neutrophils Absolute Auto 7.9 K/mm3 (1.3-6.7); Neutrophils Percent Auto 78.7 % (45.5-73.1); Platelet Count Result 536 k/mm3 (150-375); Red Blood Count 3.71 M/mm3 (4.6-6.20); Red Cell Distribution Width 13.2 % (11.5-14.5); White Blood Count 10.1 K/mm3 (4.5-10.0)
[2023-05-15 10:38] LABS: Anion Gap 4 mmol/L (8-16); Blood Urea Nitrogen 13 mg/dL (9-20); Calcium 9.1 mg/dL (8.4-10.2); Carbon Dioxide 32 mmol/L (22-30); Chloride 100 mmol/L (98-107); Estimated Glomerular Filt Rate > 60; Glucose 114 mg/dL (65-110); Potassium 3.7 mmol/L (3.4-5.0); Sodium 136 mmol/L (137-145)
== END 2023-05-15 09:24 | disposition home or self-care (01) ==
LOC: ANHLAB 09:25
PROVIDERS: PCP Emergency Medicine; Visit Provider Surgery
DX: D64.9 Anemia, unspecified (principal); E87.6 Hypokalemia
CPT/HCPCS: 36415; 80048; 85025